=== PATIENT | male | born 1950 | race African-American/Black ===

== ENCOUNTER 2020-10-06 11:27 | Observation (INO) ==
[2020-10-06] MEDS ORDERED: SODIUM CHLORIDE 0.9% 1,000 ML IV STA (11:43)
[2020-10-06 12:22] LABS: Basophils % 0.3 % (0.0-0.8); Eosinophils # 0.1 10*3/uL (0.0-0.87); Eosinophils % 0.7 % (0.00-10.9); Hematocrit 33.8 VOL% (42.0-52.0); Hemoglobin 10.6 GM/DL (14.0-18.0); Immature Granulocytes % 0.3 %; Immature Granulocytes Absolute 0.03 #; Lymphocytes % 22.3 % (21.2-54.2); Mean Corpuscular HGB Conc 31.4 GM/DL (32-36); Mean Corpuscular Volume 98.3 FL (87-102); Monocytes % 9.6 % (1.7-12.7); Neutrophils % 66.8 % (38.7-73.9); Platelet Count 209 T/CUMM (130-400); Red Blood Count 3.44 MC/CUMM (3.8-5.5); Red Cell Distribution Width 14.3 % (9.3-17.3); White Blood Count 9.1 T/CUMM (4-12)
[2020-10-06 12:32] LABS: PT Patient Result 11.4 SECS (10.5-12.0)
[2020-10-06 12:43] LABS: Albumin 3.6 G/DL (3.4-5.0); Bilirubin,Total 0.6 MG/DL (0.20-1.00); Calcium 8.8 MG/DL (8.5-10.1); Osmolality,Calculated 289.7 MOS/KG (273-304); Potassium 3.5 MMOL/L (3.5-5.1); Total Protein 7.2 G/DL (6.4-8.2)
[2020-10-06 13:41] LABS: Bilirubin,Urine Negative (Negative); Blood, Urine Negative (Negative); Glucose,Urine (UA) Negative (Negative); Ketones,Urine 5 mg/dL (Negative); Mucus,Urine Occasional /LPF (Occasional); Nitrite,Urine Negative (Negative); Protein,Urine Negative; RBC,Urine 5 /HPF (0-4); Squamous Epithelial Cell,Urine Occasional /HPF (0-10); Urine Appearance CLEAR (Clear); Urine Color Yellow (Yellow); Urine Specific Gravity 1.018 (1.001-1.035)
[2020-10-06 14:17] LABS: ABG HCO3 24.6 MMOL/L (20-26); ABG Oxygen Saturation 95.6 % (95-100); ABG PCO2 39.7 MM HG (35-48); ABG PO2 85.5 MM HG (80-95); ABG TCO2 25.8 MMOL/L (23-27)
[2020-10-06] MEDS ORDERED: ONDANSETRON 4 MG/2 ML VIAL IV PRN (15:51)
[2020-10-06] MEDS ORDERED: hydrALAZINE 20 MG/1 ML VIAL IV PRN (15:51)
[2020-10-06] MEDS ORDERED: ACETAMINOPHEN 325 MG TABLET PO PRN (15:51)
[2020-10-06] MEDS ORDERED: DOCUSATE SODIUM 100 MG CAPSULE PO PRN (15:51)
[2020-10-06] MEDS ORDERED: DEXTROSE 50% 25 GM/50 ML VIAL IV PRN (15:51)
[2020-10-06] MEDS ORDERED: GLUCAGON 1 MG VIAL IM PRN (15:51)
[2020-10-06] MEDS ORDERED: ALBUTEROL 2.5 MG/3 ML NEB RESP TX PRN (15:51)
[2020-10-06] MEDS ORDERED: NITROGLYCERIN SL 0.4 MG TABLET SL PRN (20:04)
[2020-10-06] MEDS: levETIRAcetam 500 MG TABLET PO SCH (21:53)
[2020-10-06] MEDS: risperiDONE 1 MG TABLET PO SCH (21:53)
[2020-10-06] MEDS: ENOXAPARIN 40 MG/0.4 ML SYRINGE SUBCUT SCH (21:53)
[2020-10-06] MEDS: DIVALPROEX ER 500 MG TABLET PO SCH (21:54)
[2020-10-07 05:49] LABS: Basophils % 0.3 % (0.0-0.8); Eosinophils % 0.4 % (0.00-10.9); Hematocrit 29.1 VOL% (42.0-52.0); Hemoglobin 9.4 GM/DL (14.0-18.0); Immature Granulocytes % 0.6 %; Immature Granulocytes Absolute 0.05 #; Lymphocytes # 1.7 10*3/uL (1.4-4.0); Lymphocytes % 19.4 % (21.2-54.2); Mean Corpuscular HGB Conc 32.3 GM/DL (32-36); Mean Platelet Volume 10.8 FL (9.6-12.0); Monocytes % 10.7 % (1.7-12.7); Neutrophils % 68.6 % (38.7-73.9); Platelet Count 199 T/CUMM (130-400); Red Cell Distribution Width 14.2 % (9.3-17.3)
[2020-10-07 06:06] LABS: Calcium 8.7 MG/DL (8.5-10.1); Osmolality,Calculated 281.3 MOS/KG (273-304); Potassium 3.2 MMOL/L (3.5-5.1); Risk Ratio 7.53; Thyroid Stimulating Hormone 3.55 uIU/ml (0.358-3.74); VLDL Cholesterol 30.6 MG/DL
[2020-10-07] MEDS ORDERED: risperiDONE 0.5 MG TABLET PO SCH (09:00)
[2020-10-07] MEDS: SERTRALINE 100 MG TABLET PO SCH (09:26)
[2020-10-07] MEDS: levETIRAcetam 500 MG TABLET PO SCH ×2 (09:26→21:58)
[2020-10-07] MEDS: MEMANTINE 10 MG TABLET PO SCH (09:26)
[2020-10-07] MEDS: PANTOPRAZOLE 40 MG TABLET PO SCH (09:27)
[2020-10-07] MEDS: DONEPEZIL 10 MG TABLET PO SCH (09:27)
[2020-10-07] MEDS: DIVALPROEX ER 500 MG TABLET PO SCH (09:34)
[2020-10-07] MEDS: VALPROIC ACID 250 MG/5 ML UDCUP PO SCH ×2 (10:22→21:57)
[2020-10-07] MEDS: ENOXAPARIN 40 MG/0.4 ML SYRINGE SUBCUT SCH (21:57)
[2020-10-07] MEDS: risperiDONE 1 MG TABLET PO SCH (21:57)
[2020-10-07] MEDS: ATORVASTATIN 20 MG TABLET PO SCH (21:58)
[2020-10-08 05:40] LABS: Basophils % 0.4 % (0.0-0.8); Eosinophils # 0.1 10*3/uL (0.0-0.87); Eosinophils % 0.9 % (0.00-10.9); Hematocrit 28.3 VOL% (42.0-52.0); Hemoglobin 9.2 GM/DL (14.0-18.0); Immature Granulocytes % 0.4 %; Immature Granulocytes Absolute 0.03 #; Lymphocytes # 2.1 10*3/uL (1.4-4.0); Lymphocytes % 27.2 % (21.2-54.2); Mean Corpuscular HGB Conc 32.5 GM/DL (32-36); Mean Corpuscular Volume 97.3 FL (87-102); Mean Platelet Volume 10.4 FL (9.6-12.0); Monocytes % 9.6 % (1.7-12.7); Neutrophils % 61.5 % (38.7-73.9); Platelet Count 200 T/CUMM (130-400); Red Blood Count 2.91 MC/CUMM (3.8-5.5); Red Cell Distribution Width 13.9 % (9.3-17.3); White Blood Count 7.8 T/CUMM (4-12)
[2020-10-08 06:15] LABS: Calcium 8.7 MG/DL (8.5-10.1); Osmolality,Calculated 283.1 MOS/KG (273-304); Potassium 3.1 MMOL/L (3.5-5.1)
[2020-10-08] MEDS: CARBIDOPA/LEVODOPA 25-100 MG TABLET PO SCH ×3 (08:36→16:44)
[2020-10-08] MEDS: POTASSIUM BICARB EFFERVESCENT 20 MEQ TAB.EFF PO PRN ×3 (08:37→12:39)
[2020-10-08] MEDS: MEMANTINE 10 MG TABLET PO SCH (08:37)
[2020-10-08] MEDS: levETIRAcetam 500 MG TABLET PO SCH ×2 (08:37→21:36)
[2020-10-08] MEDS: DONEPEZIL 10 MG TABLET PO SCH (08:37)
[2020-10-08] MEDS: PANTOPRAZOLE 40 MG TABLET PO SCH (08:37)
[2020-10-08] MEDS: SERTRALINE 100 MG TABLET PO SCH (08:37)
[2020-10-08] MEDS: VALPROIC ACID 250 MG/5 ML UDCUP PO SCH ×2 (08:37→21:36)
[2020-10-08] MEDS: ATORVASTATIN 20 MG TABLET PO SCH (21:36)
[2020-10-08] MEDS: risperiDONE 1 MG TABLET PO SCH (21:36)
[2020-10-08] MEDS: ENOXAPARIN 40 MG/0.4 ML SYRINGE SUBCUT SCH (21:36)
[2020-10-09] MEDS: MEMANTINE 10 MG TABLET PO SCH (10:08)
[2020-10-09] MEDS: PANTOPRAZOLE 40 MG TABLET PO SCH (10:08)
[2020-10-09] MEDS: CARBIDOPA/LEVODOPA 25-100 MG TABLET PO SCH ×3 (10:08→17:33)
[2020-10-09] MEDS: SERTRALINE 100 MG TABLET PO SCH (10:09)
[2020-10-09] MEDS: VALPROIC ACID 250 MG/5 ML UDCUP PO SCH ×2 (10:09→20:47)
[2020-10-09] MEDS: DONEPEZIL 10 MG TABLET PO SCH (10:09)
[2020-10-09] MEDS: levETIRAcetam 500 MG TABLET PO SCH ×2 (10:09→20:47)
[2020-10-09] MEDS: AZITHROMYCIN 250 MG TABLET PO SCH (12:22)
[2020-10-09] MEDS: risperiDONE 1 MG TABLET PO SCH (20:46)
[2020-10-09] MEDS: ENOXAPARIN 40 MG/0.4 ML SYRINGE SUBCUT SCH (20:47)
[2020-10-09] MEDS: ATORVASTATIN 20 MG TABLET PO SCH (20:47)
[2020-10-10] MEDS: MEMANTINE 10 MG TABLET PO SCH (08:51)
[2020-10-10] MEDS: DONEPEZIL 10 MG TABLET PO SCH (08:51)
[2020-10-10] MEDS: SERTRALINE 100 MG TABLET PO SCH (08:53)
[2020-10-10] MEDS: CARBIDOPA/LEVODOPA 25-100 MG TABLET PO SCH ×3 (08:53→17:44)
[2020-10-10] MEDS: PANTOPRAZOLE 40 MG TABLET PO SCH (09:07)
[2020-10-10] MEDS: AZITHROMYCIN 250 MG TABLET PO SCH (09:07)
[2020-10-10] MEDS: levETIRAcetam 500 MG TABLET PO SCH ×2 (09:08→21:32)
[2020-10-10] MEDS: VALPROIC ACID 250 MG/5 ML UDCUP PO SCH ×2 (09:08→21:32)
[2020-10-10] MEDS: ENOXAPARIN 40 MG/0.4 ML SYRINGE SUBCUT SCH (21:32)
[2020-10-10] MEDS: ATORVASTATIN 20 MG TABLET PO SCH (21:32)
[2020-10-10] MEDS: risperiDONE 1 MG TABLET PO SCH (21:32)
[2020-10-11] MEDS: PANTOPRAZOLE 40 MG TABLET PO SCH (09:36)
[2020-10-11] MEDS: CARBIDOPA/LEVODOPA 25-100 MG TABLET PO SCH ×2 (09:36→13:00)
[2020-10-11] MEDS: MEMANTINE 10 MG TABLET PO SCH (09:37)
[2020-10-11] MEDS: SERTRALINE 100 MG TABLET PO SCH (09:37)
[2020-10-11] MEDS: levETIRAcetam 500 MG TABLET PO SCH (09:37)
[2020-10-11] MEDS: AZITHROMYCIN 250 MG TABLET PO SCH (09:37)
[2020-10-11] MEDS: VALPROIC ACID 250 MG/5 ML UDCUP PO SCH (09:37)
[2020-10-11] MEDS: DONEPEZIL 10 MG TABLET PO SCH (09:38)
[2020-10-11 12:23] VITALS: BP 141/83
== END 2020-10-11 13:21 ==
LOC: N.EDINP 11:27 → N.ED 11:27 → SUATTDRO 15:51 → N.3E 18:11
PROVIDERS: ADMIT Internal Medicine; ATTEND Hospitalist

== ENCOUNTER 2020-12-19 13:43 | Inpatient (IN) ==
[2020-12-19] MEDS ORDERED: ACETAMINOPHEN 650 MG SUPP RECTAL STA (14:07)
[2020-12-19 14:29] LABS: Basophils % 0.2 % (0.0-0.8); Hematocrit 37.4 VOL% (42.0-52.0); Hemoglobin 11.5 GM/DL (14.0-18.0); Immature Granulocytes % 0.3 %; Immature Granulocytes Absolute 0.04 #; Lymphocytes # 1.3 10*3/uL (1.4-4.0); Mean Corpuscular HGB Conc 30.7 GM/DL (32-36); Mean Corpuscular Volume 99.7 FL (87-102); Mean Platelet Volume 10.1 FL (9.6-12.0); Monocytes % 11.9 % (1.7-12.7); Neutrophils % 77.6 % (38.7-73.9); Platelet Count 301 T/CUMM (130-400); Red Blood Count 3.75 MC/CUMM (3.8-5.5); Red Cell Distribution Width 13.6 % (9.3-17.3); White Blood Count 13.3 T/CUMM (4-12)
[2020-12-19 14:40] LABS: Alanine Aminotransferase 11 U/L (16-61); Albumin 3.1 G/DL (3.4-5.0); Alkaline Phosphatase 90 U/L (45-117); Aspartate Amino Transferase 42 U/L (0-37); Blood Urea Nitrogen 37 MG/DL (7-18); Calcium 9.2 MG/DL (8.5-10.1); Carbon Dioxide 29 MMOL/L (21-32); Glucose 141 MG/DL (74-106); Osmolality,Calculated 306.1 MOS/KG (273-304); Potassium 3.9 MMOL/L (3.5-5.1); Sodium 149 MMOL/L (136-145); Total Protein 7.1 G/DL (6.4-8.2)
[2020-12-19 14:41] LABS: Estimated Glom Filtration Rate 0 ML/MIN
[2020-12-19] MEDS ORDERED: LACTATED RINGERS 1,000 ML IV ONE (14:44)
[2020-12-19 15:25] LABS: Bilirubin,Urine Negative (Negative); Blood, Urine Negative (Negative); Glucose,Urine (UA) Negative (Negative); Ketones,Urine 5 mg/dL (Negative); Mucus,Urine Few /LPF (Occasional); Nitrite,Urine Negative (Negative); Protein,Urine Negative; RBC,Urine 4 /HPF (0-4); Urine Appearance CLEAR (Clear); Urine Color Yellow (Yellow); Urine Urobilinogen < 2.0 EU/DL (0.2-1.0)
[2020-12-19] MEDS ORDERED: PIPERACILLIN/TAZOBACTAM 3,375 MG in SODIUM CHLORIDE 0.9% 100 ML IV STA (15:37)
[2020-12-19] MEDS ORDERED: ONDANSETRON 4 MG/2 ML VIAL IV PRN (16:22)
[2020-12-19] MEDS ORDERED: ACETAMINOPHEN 325 MG TABLET PO PRN (16:22)
[2020-12-19] MEDS ORDERED: PIPERACILLIN/TAZOBACTAM 3,375 MG VIAL IV ONE (16:38)
[2020-12-19] MEDS ORDERED: SODIUM CHLORIDE 0.9% 100 ML IV ONE (16:39)
[2020-12-19] MEDS ORDERED: hydrALAZINE 20 MG/1 ML VIAL IV PRN (17:11)
[2020-12-19] MEDS ORDERED: SODIUM CHLORIDE 0.9% 2,550 ML IV ONE (17:25)
[2020-12-19] MEDS ORDERED: VANCOMYCIN INJ 1,000 MG in SODIUM CHLORIDE 0.9% 250 ML IV SCH (17:30)
[2020-12-19] MEDS: ENOXAPARIN 40 MG/0.4 ML SYRINGE SUBCUT SCH (18:15)
[2020-12-19] MEDS: LACTATED RINGERS 1,000 ML IV SCH (22:55)
[2020-12-19] MEDS: VANCOMYCIN INJ 1,250 MG in SODIUM CHLORIDE 0.9% 250 ML IV SCH (22:56)
[2020-12-20] MEDS: PIPERACILLIN/TAZOBACTAM 3,375 MG in SODIUM CHLORIDE 0.9% 100 ML IV SCH ×4 (00:32→23:58)
[2020-12-20 05:25] LABS: Hemoglobin 10.4 GM/DL (14.0-18.0); Mean Corpuscular HGB Conc 30.6 GM/DL (32-36); Mean Corpuscular Volume 101.5 FL (87-102); Red Blood Count 3.35 MC/CUMM (3.8-5.5); Red Cell Distribution Width 13.5 % (9.3-17.3); White Blood Count 14.1 T/CUMM (4-12)
[2020-12-20 05:26] LABS: Basophils % 0.3 % (0.0-0.8); Immature Granulocytes % 0.4 %; Immature Granulocytes Absolute 0.06 #; Lymphocytes # 1.8 10*3/uL (1.4-4.0); Lymphocytes % 12.4 % (21.2-54.2); Monocytes % 11.7 % (1.7-12.7); Neutrophils % 75.2 % (38.7-73.9); Platelet Count 268 T/CUMM (130-400)
[2020-12-20 05:42] LABS: Calcium 8.7 MG/DL (8.5-10.1); Osmolality,Calculated 306.9 MOS/KG (273-304); Potassium 4.2 MMOL/L (3.5-5.1)
[2020-12-20] MEDS: LACTATED RINGERS 1,000 ML IV SCH ×2 (06:38→10:41)
[2020-12-20] MEDS: SODIUM CHLORIDE 0.45% 1,000 ML IV SCH (09:33)
[2020-12-20] MEDS ORDERED: ACETAMINOPHEN 325 MG SUPP RECTAL PRN (14:34)
[2020-12-20] MEDS: VANCOMYCIN INJ 1,250 MG in SODIUM CHLORIDE 0.9% 250 ML IV SCH (14:35)
[2020-12-20] MEDS: ENOXAPARIN 40 MG/0.4 ML SYRINGE SUBCUT SCH (17:02)
[2020-12-21] MEDS: SODIUM CHLORIDE 0.45% 1,000 ML IV SCH (01:23)
[2020-12-21 05:13] LABS: Basophils # 0.1 10*3/uL (0.0-0.2); Basophils % 0.5 % (0.0-0.8); Eosinophils % 0.2 % (0.00-10.9); Hematocrit 29.9 VOL% (42.0-52.0); Hemoglobin 9.1 GM/DL (14.0-18.0); Immature Granulocytes % 0.6 %; Immature Granulocytes Absolute 0.06 #; Lymphocytes # 2.1 10*3/uL (1.4-4.0); Lymphocytes % 22.6 % (21.2-54.2); Mean Corpuscular HGB Conc 30.4 GM/DL (32-36); Mean Corpuscular Volume 103.5 FL (87-102); Mean Platelet Volume 10.1 FL (9.6-12.0); Monocytes % 9.4 % (1.7-12.7); Neutrophils % 66.7 % (38.7-73.9); Platelet Count 228 T/CUMM (130-400); Red Blood Count 2.89 MC/CUMM (3.8-5.5); Red Cell Distribution Width 13.2 % (9.3-17.3); White Blood Count 9.3 T/CUMM (4-12)
[2020-12-21 05:50] LABS: % Iron Saturation 17.2 % (18-50); Calcium 8.4 MG/DL (8.5-10.1); Ferritin 324.3 ng/mL (26-388); Osmolality,Calculated 304.9 MOS/KG (273-304)
[2020-12-21 05:57] LABS: Folate 4.82 NG/ML (5.38-24.0)
[2020-12-21] MEDS: VANCOMYCIN INJ 1,250 MG in SODIUM CHLORIDE 0.9% 250 ML IV SCH (08:13)
[2020-12-21] MEDS: PIPERACILLIN/TAZOBACTAM 3,375 MG in SODIUM CHLORIDE 0.9% 100 ML IV SCH ×2 (10:43→17:41)
[2020-12-21] MEDS ORDERED: BISACODYL 10 MG SUPP RECTAL ONE (11:00)
[2020-12-21] MEDS ORDERED: DEXTROSE 50% 25 GM/50 ML SYRINGE IV ONE (11:05)
[2020-12-21] MEDS ORDERED: AMIODARONE 150 MG/3 ML VIAL ONE (11:05)
[2020-12-21] MEDS ORDERED: SODIUM BICARBONATE 50 MEQ/50 ML SYRINGE IV ONE (11:05)
[2020-12-21] MEDS ORDERED: EPINEPHrine 1 MG/10 ML SYRINGE ONE (11:05)
[2020-12-21] MEDS: ERGOCALCIFEROL 50,000 UNIT CAPSULE PO SCH (13:54)
[2020-12-21] MEDS: FERROUS SULFATE 325 MG TABLET PO SCH (13:54)
[2020-12-21] MEDS: POLYETHYLENE GLYCOL POWDER 17 GM PACK PO SCH (13:55)
[2020-12-21] MEDS: FOLIC ACID 1 MG TABLET PO SCH (13:55)
[2020-12-21] MEDS: ENOXAPARIN 40 MG/0.4 ML SYRINGE SUBCUT SCH (21:41)
[2020-12-21] MEDS: VALPROIC ACID 250 MG/5 ML UDCUP PO SCH (21:44)
[2020-12-21] MEDS: CARBIDOPA/LEVODOPA 25-100 MG TABLET PO SCH (21:44)
[2020-12-21] MEDS: MEMANTINE 10 MG TABLET PO SCH (21:44)
[2020-12-22] MEDS: VANCOMYCIN INJ 1,250 MG in SODIUM CHLORIDE 0.9% 250 ML IV SCH ×2 (01:58→15:16)
[2020-12-22 02:11] LABS: Basophils # 0.1 10*3/uL (0.0-0.2); Basophils % 0.5 % (0.0-0.8); Eosinophils # 0.1 10*3/uL (0.0-0.87); Eosinophils % 0.5 % (0.00-10.9); Immature Granulocytes % 0.4 %; Immature Granulocytes Absolute 0.05 #; Lymphocytes # 2.3 10*3/uL (1.4-4.0); Lymphocytes % 20.7 % (21.2-54.2); Mean Corpuscular HGB Conc 30.3 GM/DL (32-36); Mean Corpuscular Volume 100.9 FL (87-102); Mean Platelet Volume 9.9 FL (9.6-12.0); Monocytes % 9.6 % (1.7-12.7); Neutrophils % 68.3 % (38.7-73.9); Platelet Count 276 T/CUMM (130-400); Red Blood Count 3.27 MC/CUMM (3.8-5.5); Red Cell Distribution Width 12.9 % (9.3-17.3); White Blood Count 11.3 T/CUMM (4-12)
[2020-12-22 02:18] LABS: Calcium 8.5 MG/DL (8.5-10.1); Osmolality,Calculated 289.8 MOS/KG (273-304); Potassium 3.4 MMOL/L (3.5-5.1)
[2020-12-22] MEDS: PIPERACILLIN/TAZOBACTAM 3,375 MG in SODIUM CHLORIDE 0.9% 100 ML IV SCH ×3 (03:52→18:33)
[2020-12-22] MEDS: VALPROIC ACID 250 MG/5 ML UDCUP PO SCH ×2 (09:23→23:50)
[2020-12-22] MEDS: POLYETHYLENE GLYCOL POWDER 17 GM PACK PO SCH (09:24)
[2020-12-22] MEDS: CARBIDOPA/LEVODOPA 25-100 MG TABLET PO SCH ×4 (10:44→23:50)
[2020-12-22] MEDS: FOLIC ACID 1 MG TABLET PO SCH (10:45)
[2020-12-22] MEDS: FERROUS SULFATE 325 MG TABLET PO SCH (10:45)
[2020-12-22] MEDS: MEMANTINE 10 MG TABLET PO SCH ×2 (10:45→23:50)
[2020-12-22] MEDS: DONEPEZIL 10 MG TABLET PO SCH (10:46)
[2020-12-22] MEDS ORDERED: POTASSIUM CHLORIDE RIDER 10 MEQ/100 ML PREMIX IV PRN (11:27)
[2020-12-23] MEDS: VANCOMYCIN INJ 1,250 MG in SODIUM CHLORIDE 0.9% 250 ML IV SCH ×2 (03:13→15:03)
[2020-12-23] MEDS: PIPERACILLIN/TAZOBACTAM 3,375 MG in SODIUM CHLORIDE 0.9% 100 ML IV SCH ×3 (03:14→17:41)
[2020-12-23 05:23] LABS: Basophils # 0.1 10*3/uL (0.0-0.2); Basophils % 0.6 % (0.0-0.8); Eosinophils # 0.1 10*3/uL (0.0-0.87); Eosinophils % 1.4 % (0.00-10.9); Hematocrit 31.7 VOL% (42.0-52.0); Hemoglobin 9.5 GM/DL (14.0-18.0); Immature Granulocytes % 0.5 %; Immature Granulocytes Absolute 0.05 #; Lymphocytes # 2.6 10*3/uL (1.4-4.0); Lymphocytes % 25.7 % (21.2-54.2); Mean Corpuscular Volume 100.6 FL (87-102); Mean Platelet Volume 10.2 FL (9.6-12.0); Monocytes % 8.8 % (1.7-12.7); Platelet Count 320 T/CUMM (130-400); Red Blood Count 3.15 MC/CUMM (3.8-5.5); Red Cell Distribution Width 13.1 % (9.3-17.3); White Blood Count 10.2 T/CUMM (4-12)
[2020-12-23 05:33] LABS: Calcium 8.4 MG/DL (8.5-10.1); Osmolality,Calculated 289.7 MOS/KG (273-304); Potassium 3.2 MMOL/L (3.5-5.1)
[2020-12-23 05:43] LABS: INR 1.1; PT Patient Result 12.5 SECS (10.5-12.0)
[2020-12-23] MEDS: POTASSIUM CHLORIDE 20 MEQ TABLET PO PRN ×4 (07:01→17:40)
[2020-12-23] MEDS ORDERED: LACTATED RINGERS 1,000 ML IV SCH (08:00)
[2020-12-23] MEDS ORDERED: LIDOCAINE 2% 5 ML VIAL ONE (09:57)
[2020-12-23] MEDS ORDERED: propofoL 200 MG/20 ML VIAL IV ONE (09:57)
[2020-12-23] MEDS: MEMANTINE 10 MG TABLET PO SCH ×2 (13:09→20:46)
[2020-12-23] MEDS: FOLIC ACID 1 MG TABLET PO SCH (13:09)
[2020-12-23] MEDS: FERROUS SULFATE 325 MG TABLET PO SCH (13:09)
[2020-12-23] MEDS: DONEPEZIL 10 MG TABLET PO SCH (13:09)
[2020-12-23] MEDS: VALPROIC ACID 250 MG/5 ML UDCUP PO SCH ×2 (13:09→20:45)
[2020-12-23] MEDS: POLYETHYLENE GLYCOL POWDER 17 GM PACK PO SCH (13:09)
[2020-12-23] MEDS: CARBIDOPA/LEVODOPA 25-100 MG TABLET PO SCH ×4 (13:09→20:46)
[2020-12-24] MEDS: VANCOMYCIN INJ 1,250 MG in SODIUM CHLORIDE 0.9% 250 ML IV SCH ×2 (02:01→14:34)
[2020-12-24] MEDS: PIPERACILLIN/TAZOBACTAM 3,375 MG in SODIUM CHLORIDE 0.9% 100 ML IV SCH ×3 (03:12→23:13)
[2020-12-24 04:30] LABS: Basophils # 0.1 10*3/uL (0.0-0.2); Basophils % 0.6 % (0.0-0.8); Eosinophils # 0.3 10*3/uL (0.0-0.87); Eosinophils % 2.2 % (0.00-10.9); Hemoglobin 9.8 GM/DL (14.0-18.0); Immature Granulocytes % 0.4 %; Immature Granulocytes Absolute 0.05 #; Lymphocytes # 2.8 10*3/uL (1.4-4.0); Lymphocytes % 25.2 % (21.2-54.2); Mean Corpuscular HGB Conc 30.6 GM/DL (32-36); Mean Corpuscular Volume 99.7 FL (87-102); Mean Platelet Volume 10.1 FL (9.6-12.0); Monocytes % 8.2 % (1.7-12.7); Neutrophils % 63.4 % (38.7-73.9); Platelet Count 313 T/CUMM (130-400); Red Blood Count 3.21 MC/CUMM (3.8-5.5); Red Cell Distribution Width 13.2 % (9.3-17.3); White Blood Count 11.2 T/CUMM (4-12)
[2020-12-24 04:57] LABS: Alanine Aminotransferase < 6 U/L (16-61); Albumin 2.2 G/DL (3.4-5.0); Alkaline Phosphatase 73 U/L (45-117); Aspartate Amino Transferase 17 U/L (0-37); Blood Urea Nitrogen 13 MG/DL (7-18); Calcium 8.3 MG/DL (8.5-10.1); Carbon Dioxide 26 MMOL/L (21-32); Estimated Glom Filtration Rate 107 ML/MIN; Glucose 107 MG/DL (74-106); Osmolality,Calculated 285.8 MOS/KG (273-304); Potassium 3.3 MMOL/L (3.5-5.1); Sodium 144 MMOL/L (136-145); Total Protein 5.7 G/DL (6.4-8.2)
[2020-12-24] MEDS: MEMANTINE 10 MG TABLET PO SCH ×2 (09:43→22:50)
[2020-12-24] MEDS: VALPROIC ACID 250 MG/5 ML UDCUP PO SCH ×2 (09:43→22:00)
[2020-12-24] MEDS: FOLIC ACID 1 MG TABLET PO SCH (09:43)
[2020-12-24] MEDS: CARBIDOPA/LEVODOPA 25-100 MG TABLET PO SCH ×4 (09:43→22:02)
[2020-12-24] MEDS: POLYETHYLENE GLYCOL POWDER 17 GM PACK PO SCH (09:43)
[2020-12-24] MEDS: FERROUS SULFATE 325 MG TABLET PO SCH (09:43)
[2020-12-24] MEDS: DONEPEZIL 10 MG TABLET PO SCH (09:43)
[2020-12-24] MEDS ORDERED: LACTATED RINGERS 1,000 ML IV SCH (11:00)
[2020-12-24] MEDS ORDERED: ETOMIDATE 40 MG/20 ML VIAL IV ONE (11:37)
[2020-12-24] MEDS ORDERED: propofoL 200 MG/20 ML VIAL IV ONE (11:37)
[2020-12-24] MEDS ORDERED: LIDOCAINE 2% 5 ML VIAL ONE (11:37)
[2020-12-24] MEDS ORDERED: SEVOFLURANE 1 UNIT/15 MINUTE INH ONE (11:37)
[2020-12-24] MEDS ORDERED: SUGAMMADEX 200 MG/2 ML VIAL IV ONE (11:51)
[2020-12-24] MEDS ORDERED: HYDROmorphone 2 MG/1 ML VIAL IV PRN (12:42)
[2020-12-24] MEDS ORDERED: MEPERIDINE 25 MG/1 ML VIAL IV PRN (12:42)
[2020-12-24] MEDS ORDERED: ONDANSETRON 4 MG/2 ML VIAL IV PRN (12:42)
[2020-12-24] MEDS ORDERED: POTASSIUM CHLORIDE 20 MEQ PACK PO ONE (18:18)
[2020-12-24] MEDS ORDERED: VANCOMYCIN INJ 1,250 MG in SODIUM CHLORIDE 0.9% 250 ML IV SCH (21:00)
[2020-12-25 06:13] LABS: Basophils # 0.1 10*3/uL (0.0-0.2); Basophils % 0.4 % (0.0-0.8); Eosinophils # 0.1 10*3/uL (0.0-0.87); Eosinophils % 0.7 % (0.00-10.9); Hematocrit 32.3 VOL% (42.0-52.0); Hemoglobin 10.3 GM/DL (14.0-18.0); Immature Granulocytes % 0.5 %; Immature Granulocytes Absolute 0.07 #; Lymphocytes # 1.5 10*3/uL (1.4-4.0); Lymphocytes % 10.9 % (21.2-54.2); Mean Corpuscular HGB Conc 31.9 GM/DL (32-36); Mean Corpuscular Volume 98.8 FL (87-102); Mean Platelet Volume 9.6 FL (9.6-12.0); Monocytes % 9.8 % (1.7-12.7); Neutrophils % 77.7 % (38.7-73.9); Platelet Count 295 T/CUMM (130-400); Red Blood Count 3.27 MC/CUMM (3.8-5.5); Red Cell Distribution Width 13.4 % (9.3-17.3); White Blood Count 13.6 T/CUMM (4-12)
[2020-12-25] MEDS: PIPERACILLIN/TAZOBACTAM 3,375 MG in SODIUM CHLORIDE 0.9% 100 ML IV SCH ×3 (06:27→22:26)
[2020-12-25 06:30] LABS: Albumin 2.2 G/DL (3.4-5.0); Bilirubin,Total 0.5 MG/DL (0.20-1.00); Calcium 8.6 MG/DL (8.5-10.1); Osmolality,Calculated 289.6 MOS/KG (273-304); Potassium 3.6 MMOL/L (3.5-5.1); Total Protein 5.9 G/DL (6.4-8.2)
[2020-12-25] MEDS: VALPROIC ACID 250 MG/5 ML UDCUP PO SCH ×2 (09:20→20:51)
[2020-12-25] MEDS: MEMANTINE 10 MG TABLET PO SCH ×2 (09:20→20:51)
[2020-12-25] MEDS: FOLIC ACID 1 MG TABLET PO SCH (09:20)
[2020-12-25] MEDS: DONEPEZIL 10 MG TABLET PO SCH (09:20)
[2020-12-25] MEDS: CARBIDOPA/LEVODOPA 25-100 MG TABLET PO SCH ×4 (09:20→20:51)
[2020-12-25] MEDS: FERROUS SULFATE 325 MG TABLET PO SCH (09:20)
[2020-12-25] MEDS: POLYETHYLENE GLYCOL POWDER 17 GM PACK PO SCH (09:26)
[2020-12-26 06:09] LABS: Basophils % 0.3 % (0.0-0.8); Eosinophils # 0.2 10*3/uL (0.0-0.87); Eosinophils % 1.4 % (0.00-10.9); Hematocrit 29.4 VOL% (42.0-52.0); Hemoglobin 9.2 GM/DL (14.0-18.0); Immature Granulocytes % 0.7 %; Immature Granulocytes Absolute 0.08 #; Lymphocytes # 1.5 10*3/uL (1.4-4.0); Mean Corpuscular HGB Conc 31.3 GM/DL (32-36); Monocytes % 10.3 % (1.7-12.7); Neutrophils % 75.3 % (38.7-73.9); Platelet Count 311 T/CUMM (130-400); Red Blood Count 2.97 MC/CUMM (3.8-5.5); Red Cell Distribution Width 13.7 % (9.3-17.3); White Blood Count 12.3 T/CUMM (4-12)
[2020-12-26 06:31] LABS: Alanine Aminotransferase < 6 U/L (16-61); Albumin 2.2 G/DL (3.4-5.0); Alkaline Phosphatase 76 U/L (45-117); Aspartate Amino Transferase 15 U/L (0-37); Blood Urea Nitrogen 14 MG/DL (7-18); Calcium 8.8 MG/DL (8.5-10.1); Carbon Dioxide 26 MMOL/L (21-32); Estimated Glom Filtration Rate 76 ML/MIN; Glucose 81 MG/DL (74-106); Osmolality,Calculated 289.6 MOS/KG (273-304); Sodium 146 MMOL/L (136-145)
[2020-12-26] MEDS: PIPERACILLIN/TAZOBACTAM 3,375 MG in SODIUM CHLORIDE 0.9% 100 ML IV SCH ×3 (07:19→23:01)
[2020-12-26] MEDS: VALPROIC ACID 250 MG/5 ML UDCUP PO SCH ×2 (08:39→23:00)
[2020-12-26] MEDS: DONEPEZIL 10 MG TABLET PO SCH (08:39)
[2020-12-26] MEDS: FERROUS SULFATE 325 MG TABLET PO SCH (08:39)
[2020-12-26] MEDS: FOLIC ACID 1 MG TABLET PO SCH (08:39)
[2020-12-26] MEDS: POLYETHYLENE GLYCOL POWDER 17 GM PACK PO SCH (08:40)
[2020-12-26] MEDS: POTASSIUM CHLORIDE 20 MEQ TABLET PO PRN ×4 (08:40→17:47)
[2020-12-26] MEDS: MEMANTINE 10 MG TABLET PO SCH ×2 (08:40→22:58)
[2020-12-26] MEDS: CARBIDOPA/LEVODOPA 25-100 MG TABLET PO SCH ×4 (08:40→22:58)
[2020-12-27 05:28] LABS: Basophils % 0.3 % (0.0-0.8); Eosinophils # 0.1 10*3/uL (0.0-0.87); Eosinophils % 0.8 % (0.00-10.9); Hematocrit 31.5 VOL% (42.0-52.0); Hemoglobin 9.7 GM/DL (14.0-18.0); Immature Granulocytes % 0.7 %; Immature Granulocytes Absolute 0.09 #; Lymphocytes # 1.5 10*3/uL (1.4-4.0); Lymphocytes % 12.1 % (21.2-54.2); Mean Corpuscular HGB Conc 30.8 GM/DL (32-36); Mean Platelet Volume 9.8 FL (9.6-12.0); Monocytes % 12.5 % (1.7-12.7); Neutrophils % 73.6 % (38.7-73.9); Platelet Count 349 T/CUMM (130-400); Red Blood Count 3.15 MC/CUMM (3.8-5.5); Red Cell Distribution Width 13.9 % (9.3-17.3); White Blood Count 12.5 T/CUMM (4-12)
[2020-12-27 05:45] LABS: Alanine Aminotransferase < 6 U/L (16-61); Albumin 2.2 G/DL (3.4-5.0); Alkaline Phosphatase 90 U/L (45-117); Aspartate Amino Transferase 15 U/L (0-37); Blood Urea Nitrogen 13 MG/DL (7-18); Calcium 8.5 MG/DL (8.5-10.1); Carbon Dioxide 26 MMOL/L (21-32); Estimated Glom Filtration Rate 76 ML/MIN; Glucose 104 MG/DL (74-106); Osmolality,Calculated 289.6 MOS/KG (273-304); Potassium 3.2 MMOL/L (3.5-5.1); Sodium 146 MMOL/L (136-145); Total Protein 6.2 G/DL (6.4-8.2)
[2020-12-27] MEDS: PIPERACILLIN/TAZOBACTAM 3,375 MG in SODIUM CHLORIDE 0.9% 100 ML IV SCH (06:26)
[2020-12-27] MEDS: POLYETHYLENE GLYCOL POWDER 17 GM PACK PO SCH (09:39)
[2020-12-27] MEDS: MEMANTINE 10 MG TABLET PO SCH ×2 (09:39→23:21)
[2020-12-27] MEDS: VALPROIC ACID 250 MG/5 ML UDCUP PO SCH ×2 (09:39→23:20)
[2020-12-27] MEDS: FOLIC ACID 1 MG TABLET PO SCH (09:39)
[2020-12-27] MEDS: DONEPEZIL 10 MG TABLET PO SCH (09:39)
[2020-12-27] MEDS: FERROUS SULFATE 325 MG TABLET PO SCH (09:39)
[2020-12-27] MEDS: CARBIDOPA/LEVODOPA 25-100 MG TABLET PO SCH ×4 (09:39→23:20)
[2020-12-28 07:18] LABS: Calcium 8.4 MG/DL (8.5-10.1); Osmolality,Calculated 283.1 MOS/KG (273-304); Potassium 3.4 MMOL/L (3.5-5.1)
[2020-12-28] MEDS: VALPROIC ACID 250 MG/5 ML UDCUP PO SCH (09:53)
[2020-12-28] MEDS: POLYETHYLENE GLYCOL POWDER 17 GM PACK PO SCH (09:54)
[2020-12-28] MEDS: FERROUS SULFATE 325 MG TABLET PO SCH (09:54)
[2020-12-28] MEDS: DONEPEZIL 10 MG TABLET PO SCH (09:54)
[2020-12-28] MEDS: FOLIC ACID 1 MG TABLET PO SCH (09:54)
[2020-12-28] MEDS: POTASSIUM CHLORIDE 20 MEQ TABLET PO PRN (09:55)
[2020-12-28] MEDS: ERGOCALCIFEROL 50,000 UNIT CAPSULE PO SCH (09:55)
[2020-12-28] MEDS: CARBIDOPA/LEVODOPA 25-100 MG TABLET PO SCH ×2 (09:55→13:25)
[2020-12-28] MEDS: MEMANTINE 10 MG TABLET PO SCH (10:22)
[2020-12-28] MEDS ORDERED: POTASSIUM CHLORIDE 20 MEQ TABLET PO ONE (12:11)
[2020-12-28 12:46] VITALS: BP 112/71
== END 2020-12-28 13:39 | DRG 640 ==
LOC: EDBD → EDSEX → EDUNIT# → N.ED 13:43 → N.EDINP 16:22 → SUATTDRO 16:22 → N.5E 18:02
PROVIDERS: ADMIT Internal Medicine Geriatric Medicine; ATTEND Internal Medicine

== ENCOUNTER 2021-03-10 15:06 | Observation (INO) ==
[2021-03-10 15:55] LABS: Basophils # 0.1 10*3/uL (0.0-0.2); Basophils % 0.3 % (0.0-0.8); Eosinophils # 0.1 10*3/uL (0.0-0.87); Eosinophils % 0.7 % (0.00-10.9); Hematocrit 27.9 VOL% (42.0-52.0); Hemoglobin 8.7 GM/DL (14.0-18.0); Immature Granulocytes % 0.4 %; Immature Granulocytes Absolute 0.06 #; Lymphocytes # 2.2 10*3/uL (1.4-4.0); Lymphocytes % 14.6 % (21.2-54.2); Mean Corpuscular HGB Conc 31.2 GM/DL (32-36); Mean Corpuscular Volume 95.2 FL (87-102); Mean Platelet Volume 9.3 FL (9.6-12.0); Monocytes % 7.8 % (1.7-12.7); Neutrophils % 76.2 % (38.7-73.9); Platelet Count 468 T/CUMM (130-400); Red Blood Count 2.93 MC/CUMM (3.8-5.5); Red Cell Distribution Width 14.9 % (9.3-17.3); White Blood Count 14.8 T/CUMM (4-12)
[2021-03-10 16:26] LABS: Calcium 9.5 MG/DL (8.5-10.1); Potassium 3.8 MMOL/L (3.5-5.1)
[2021-03-10 17:38] LABS: Bilirubin,Urine Negative (Negative); Blood, Urine Negative (Negative); Glucose,Urine (UA) Negative (Negative); Ketones,Urine 5 mg/dL (Negative); Mucus,Urine Moderate /LPF (Occasional); Nitrite,Urine Negative (Negative); Protein,Urine Negative; RBC,Urine 3 /HPF (0-4); Urine Appearance CLEAR (Clear); Urine Color Yellow (Yellow); Urine Specific Gravity 1.021 (1.001-1.035)
[2021-03-10] MEDS ORDERED: ONDANSETRON 4 MG/2 ML VIAL IV PRN (18:02)
[2021-03-10] MEDS ORDERED: MORPHINE 2 MG/1 ML SYRINGE IV PRN (18:02)
[2021-03-10] MEDS ORDERED: ACETAMINOPHEN 325 MG TABLET PO PRN (18:02)
[2021-03-10] MEDS ORDERED: hydrALAZINE 20 MG/1 ML VIAL IV PRN (18:02)
[2021-03-10] MEDS ORDERED: GLUCAGON 1 MG VIAL IM PRN (18:02)
[2021-03-10] MEDS: DEXTROSE 5% NACL 0.45% 1,000 ML IV SCH (18:17)
[2021-03-10] MEDS ORDERED: DEXTROSE 10% 250 ML BAG IV PRN (18:18)
[2021-03-10] MEDS: MEMANTINE 10 MG TABLET PER TUBE SCH (21:34)
[2021-03-10] MEDS: ATORVASTATIN 20 MG TABLET PEG SCH (21:34)
[2021-03-10] MEDS: CARBIDOPA/LEVODOPA 25-100 MG TABLET PEG SCH (21:34)
[2021-03-10] MEDS: VALPROIC ACID 250 MG/5 ML UDCUP PEG SCH (21:34)
[2021-03-10] MEDS: risperiDONE 1 MG TABLET PEG SCH (21:34)
[2021-03-11 05:27] LABS: Basophils # 0.1 10*3/uL (0.0-0.2); Basophils % 0.4 % (0.0-0.8); Eosinophils # 0.1 10*3/uL (0.0-0.87); Eosinophils % 0.5 % (0.00-10.9); Hematocrit 27.2 VOL% (42.0-52.0); Hemoglobin 8.3 GM/DL (14.0-18.0); Immature Granulocytes % 0.5 %; Immature Granulocytes Absolute 0.06 #; Lymphocytes # 2.2 10*3/uL (1.4-4.0); Lymphocytes % 17.5 % (21.2-54.2); Mean Corpuscular HGB Conc 30.5 GM/DL (32-36); Mean Corpuscular Volume 95.8 FL (87-102); Mean Platelet Volume 9.3 FL (9.6-12.0); Monocytes % 8.2 % (1.7-12.7); Neutrophils % 72.9 % (38.7-73.9); Platelet Count 458 T/CUMM (130-400); Red Blood Count 2.84 MC/CUMM (3.8-5.5); Red Cell Distribution Width 14.8 % (9.3-17.3); White Blood Count 12.8 T/CUMM (4-12)
[2021-03-11 05:41] LABS: Bilirubin,Total 1.7 MG/DL (0.20-1.00); Calcium 8.9 MG/DL (8.5-10.1); Osmolality,Calculated 281.5 MOS/KG (273-304); Potassium 3.6 MMOL/L (3.5-5.1); Risk Ratio 4.11; Total Protein 7.1 G/DL (6.4-8.2); VLDL Cholesterol 23.6 MG/DL
[2021-03-11] MEDS: DEXTROSE 5% NACL 0.45% 1,000 ML IV SCH ×2 (07:00→17:28)
[2021-03-11] MEDS ORDERED: PANTOPRAZOLE 40 MG VIAL IV SCH (09:00)
[2021-03-11] MEDS: DONEPEZIL 10 MG TABLET PEG SCH (11:23)
[2021-03-11] MEDS: VALPROIC ACID 250 MG/5 ML UDCUP PEG SCH ×2 (11:23→22:08)
[2021-03-11] MEDS: MEMANTINE 10 MG TABLET PER TUBE SCH ×2 (11:23→22:07)
[2021-03-11] MEDS: CARBIDOPA/LEVODOPA 25-100 MG TABLET PEG SCH ×4 (11:24→22:08)
[2021-03-11] MEDS: SERTRALINE 100 MG TABLET PEG SCH (11:24)
[2021-03-11] MEDS: risperiDONE 1 MG TABLET PEG SCH (22:07)
[2021-03-11] MEDS: ATORVASTATIN 20 MG TABLET PEG SCH (22:08)
[2021-03-11] MEDS: PANTOPRAZOLE 40 MG VIAL IV SCH (22:08)
[2021-03-12 07:00] LABS: Basophils # 0.1 10*3/uL (0.0-0.2); Basophils % 0.4 % (0.0-0.8); Eosinophils # 0.2 10*3/uL (0.0-0.87); Eosinophils % 1.6 % (0.00-10.9); Hematocrit 27.7 VOL% (42.0-52.0); Hemoglobin 8.8 GM/DL (14.0-18.0); Immature Granulocytes % 0.3 %; Immature Granulocytes Absolute 0.04 #; Lymphocytes # 2.5 10*3/uL (1.4-4.0); Lymphocytes % 20.2 % (21.2-54.2); Mean Corpuscular HGB Conc 31.8 GM/DL (32-36); Mean Corpuscular Volume 93.9 FL (87-102); Mean Platelet Volume 8.9 FL (9.6-12.0); Monocytes % 7.6 % (1.7-12.7); Neutrophils % 69.9 % (38.7-73.9); Platelet Count 464 T/CUMM (130-400); Red Blood Count 2.95 MC/CUMM (3.8-5.5); Red Cell Distribution Width 14.8 % (9.3-17.3); White Blood Count 12.2 T/CUMM (4-12)
[2021-03-12 07:06] LABS: Calcium 8.7 MG/DL (8.5-10.1); Osmolality,Calculated 270.4 MOS/KG (273-304); Potassium 3.5 MMOL/L (3.5-5.1)
[2021-03-12] MEDS: PANTOPRAZOLE 40 MG VIAL IV SCH (09:56)
[2021-03-12] MEDS: SERTRALINE 100 MG TABLET PEG SCH (10:22)
[2021-03-12] MEDS: CARBIDOPA/LEVODOPA 25-100 MG TABLET PEG SCH (10:22)
[2021-03-12] MEDS: DONEPEZIL 10 MG TABLET PEG SCH (10:22)
[2021-03-12] MEDS: MEMANTINE 10 MG TABLET PER TUBE SCH (10:22)
[2021-03-12] MEDS: VALPROIC ACID 250 MG/5 ML UDCUP PEG SCH (10:22)
[2021-03-12] MEDS: DEXTROSE 5% NACL 0.45% 1,000 ML IV SCH ×2 (10:23→11:43)
[2021-03-12 11:19] VITALS: BP 139/88
== END 2021-03-12 12:58 | disposition swing bed (61) ==
LOC: EDBD → EDUNIT# → N.EDINP 15:06 → N.ED 15:06 → N.TELES 22:36
PROVIDERS: ADMIT Internal Medicine; ATTEND Internal Medicine

== ENCOUNTER 2021-04-08 18:52 | Inpatient (IN) ==
[2021-04-08] MEDS ORDERED: SODIUM CHLORIDE 0.9% 1,000 ML IV STA ×2 (19:24→20:10)
[2021-04-08 19:30] LABS: Basophils # 0.1 10*3/uL (0.0-0.2); Basophils % 0.5 % (0.0-0.8); Eosinophils # 0.1 10*3/uL (0.0-0.87); Eosinophils % 0.8 % (0.00-10.9); Hematocrit 32.6 VOL% (42.0-52.0); Hemoglobin 10.6 GM/DL (14.0-18.0); Immature Granulocytes % 0.5 %; Immature Granulocytes Absolute 0.06 #; Lymphocytes # 3.8 10*3/uL (1.4-4.0); Lymphocytes % 29.1 % (21.2-54.2); Mean Corpuscular HGB Conc 32.5 GM/DL (32-36); Mean Corpuscular Volume 90.8 FL (87-102); Mean Platelet Volume 9.9 FL (9.6-12.0); Monocytes % 8.1 % (1.7-12.7); Platelet Count 445 T/CUMM (130-400); Red Blood Count 3.59 MC/CUMM (3.8-5.5); Red Cell Distribution Width 16.7 % (9.3-17.3)
[2021-04-08 19:46] LABS: PT Patient Result 11.7 SECS (10.5-12.0)
[2021-04-08 19:53] LABS: Amorphous Crystals,Urine Occasional /HPF (Few); Bacteria,Urine Occasional /HPF (Few); Bilirubin,Urine Negative (Negative); Blood, Urine Negative (Negative); Calcium Oxalate Crystals,Urine Occasional /HPF (Few); Glucose,Urine (UA) Negative (Negative); Ketones,Urine 5 mg/dL (Negative); Mucus,Urine Occasional /LPF (Occasional); Nitrite,Urine Negative (Negative); Protein,Urine 30 MG/DL; Squamous Epithelial Cell,Urine Occasional /HPF (0-10); Urine Appearance Slightly Hazy (Clear); Urine Color Yellow (Yellow); Urine Specific Gravity 1.023 (1.001-1.035)
[2021-04-08 19:54] LABS: Albumin 2.9 G/DL (3.4-5.0); Bilirubin,Total 0.4 MG/DL (0.20-1.00); Calcium 9.4 MG/DL (8.5-10.1); Osmolality,Calculated 283.4 MOS/KG (273-304); Potassium 3.8 MMOL/L (3.5-5.1); Total Protein 7.3 G/DL (6.4-8.2)
[2021-04-08] MEDS ORDERED: ACETAMINOPHEN 325 MG/10.15 ML UDCUP PO STA (20:29)
[2021-04-08] MEDS ORDERED: PIPERACILLIN/TAZOBACTAM 3,375 MG in SODIUM CHLORIDE 0.9% 100 ML IV STA (20:31)
[2021-04-08 21:29] LABS: ABG HCO3 16.5 MMOL/L (20-26); ABG PO2 109.4 MM HG (80-95); ABG TCO2 16.9 MMOL/L (23-27)
[2021-04-08 21:37] LABS: ABG PCO2 14.3 MM HG (35-48)
[2021-04-08] MEDS ORDERED: ACETAMINOPHEN 325 MG TABLET PO PRN (23:00)
[2021-04-08] MEDS ORDERED: hydrALAZINE 20 MG/1 ML VIAL IV PRN (23:00)
[2021-04-08] MEDS ORDERED: GLUCAGON 1 MG VIAL IM PRN (23:00)
[2021-04-08] MEDS ORDERED: ONDANSETRON 4 MG/2 ML VIAL IV PRN (23:00)
[2021-04-08] MEDS ORDERED: ZALEPLON 5 MG CAPSULE PO PRN (23:00)
[2021-04-08] MEDS ORDERED: PROMETHAZINE 25 MG/1 ML VIAL IM PRN (23:00)
[2021-04-08] MEDS ORDERED: NICOTINE 21 MG/24 HR PATCH TRANSDERM PRN (23:00)
[2021-04-08] MEDS ORDERED: DEXTROSE 10% 250 ML BAG IV PRN (23:00)
[2021-04-08] MEDS ORDERED: ENOXAPARIN 80 MG/0.8 ML SYRINGE SUBCUT STA (23:03)
[2021-04-09] MEDS: cefTRIAXone 2,000 MG in SODIUM CHLORIDE 0.9% 100 ML IV SCH
[2021-04-09] MEDS: ALBUTEROL/IPRATROPIUM 3 ML NEB RESP TX SCH ×4 (01:28→19:32)
[2021-04-09] MEDS ORDERED: ALPRAZolam 0.5 MG TABLET PO ONE (03:18)
[2021-04-09] MEDS ORDERED: LORazepam 2 MG/1 ML VIAL IV ONE (03:20)
[2021-04-09 07:08] LABS: Basophils % 0.3 % (0.0-0.8); Eosinophils # 0.1 10*3/uL (0.0-0.87); Eosinophils % 0.8 % (0.00-10.9); Hematocrit 31.6 VOL% (42.0-52.0); Hemoglobin 9.7 GM/DL (14.0-18.0); Immature Granulocytes % 0.5 %; Immature Granulocytes Absolute 0.07 #; Lymphocytes # 3.4 10*3/uL (1.4-4.0); Lymphocytes % 22.1 % (21.2-54.2); Mean Corpuscular HGB Conc 30.7 GM/DL (32-36); Mean Corpuscular Volume 93.2 FL (87-102); Monocytes % 7.7 % (1.7-12.7); Neutrophils % 68.6 % (38.7-73.9); Platelet Count 427 T/CUMM (130-400); Red Blood Count 3.39 MC/CUMM (3.8-5.5); Red Cell Distribution Width 17.1 % (9.3-17.3); White Blood Count 15.3 T/CUMM (4-12)
[2021-04-09 07:41] LABS: Calcium 8.6 MG/DL (8.5-10.1)
[2021-04-09 07:42] LABS: Osmolality,Calculated 289.1 MOS/KG (273-304); Potassium 3.3 MMOL/L (3.5-5.1)
[2021-04-09 07:44] LABS: ABG Base Excess -5.6 MMOL/L (-2.5-2.5); ABG HCO3 19.8 MMOL/L (20-26); ABG Oxygen Saturation 98.4 % (95-100); ABG PCO2 35.6 MM HG (35-48); ABG PH 7.346 (7.35-7.45); ABG TCO2 17.9 MMOL/L (23-27)
[2021-04-09] MEDS: SERTRALINE 100 MG TABLET PEG SCH (09:06)
[2021-04-09] MEDS ORDERED: POTASSIUM PHOS/SOD PHOS POWDER 250 MG PACK PO ONE (13:44)
[2021-04-09] MEDS: DEXTROSE 5% NACL 0.9% 1,000 ML IV SCH ×2 (17:23)
[2021-04-09] MEDS: ENOXAPARIN 40 MG/0.4 ML SYRINGE SUBCUT SCH (20:59)
[2021-04-09] MEDS: risperiDONE 1 MG TABLET PEG SCH (20:59)
[2021-04-10] MEDS: ALBUTEROL/IPRATROPIUM 3 ML NEB RESP TX SCH ×4 (00:04→18:41)
[2021-04-10] MEDS: cefTRIAXone 2,000 MG in SODIUM CHLORIDE 0.9% 100 ML IV SCH (00:23)
[2021-04-10] MEDS: DEXTROSE 5% NACL 0.9% 1,000 ML IV SCH (05:31)
[2021-04-10 07:58] LABS: Calcium 8.8 MG/DL (8.5-10.1); Potassium 3.8 MMOL/L (3.5-5.1)
[2021-04-10] MEDS ORDERED: LORATADINE 10 MG TABLET PEG PRN (08:44)
[2021-04-10] MEDS: OMEPRAZOLE ODT 20 MG TABLET PEG SCH ×2 (09:59→20:36)
[2021-04-10] MEDS: SERTRALINE 100 MG TABLET PEG SCH (09:59)
[2021-04-10] MEDS: FERROUS SULFATE 300 MG/5 ML UDCUP PEG SCH ×2 (10:04→20:36)
[2021-04-10] MEDS: DONEPEZIL 10 MG TABLET PEG SCH (10:05)
[2021-04-10] MEDS: FOLIC ACID 1 MG TABLET PEG SCH (10:05)
[2021-04-10] MEDS: lisinopriL 10 MG TABLET PEG SCH (10:05)
[2021-04-10] MEDS: CARBIDOPA/LEVODOPA 25-100 MG TABLET PEG SCH ×4 (10:05→20:37)
[2021-04-10] MEDS: VALPROIC ACID 250 MG/5 ML UDCUP PEG SCH ×2 (10:05→20:36)
[2021-04-10] MEDS ORDERED: LORazepam 1 MG TABLET PO ONE (10:30)
[2021-04-10] MEDS: levETIRAcetam LIQUID 100 MG/ML 30 ML/BOTTLE PEG SCH ×2 (11:27→20:37)
[2021-04-10] MEDS ORDERED: LORazepam 2 MG/1 ML VIAL IV ONE (14:22)
[2021-04-10] MEDS: risperiDONE 1 MG TABLET PEG SCH (20:36)
[2021-04-10] MEDS: ATORVASTATIN 20 MG TABLET PEG SCH (20:36)
[2021-04-10] MEDS: ENOXAPARIN 40 MG/0.4 ML SYRINGE SUBCUT SCH (20:36)
[2021-04-11] MEDS: ALBUTEROL/IPRATROPIUM 3 ML NEB RESP TX SCH ×4 (00:08→18:48)
[2021-04-11] MEDS: cefTRIAXone 2,000 MG in SODIUM CHLORIDE 0.9% 100 ML IV SCH ×2 (00:14→23:43)
[2021-04-11 07:43] LABS: Basophils # 0.1 10*3/uL (0.0-0.2); Basophils % 0.5 % (0.0-0.8); Calcium 8.8 MG/DL (8.5-10.1); Eosinophils # 0.4 10*3/uL (0.0-0.87); Eosinophils % 3.5 % (0.00-10.9); Hematocrit 27.1 VOL% (42.0-52.0); Hemoglobin 8.2 GM/DL (14.0-18.0); Immature Granulocytes % 0.5 %; Immature Granulocytes Absolute 0.06 #; Lymphocytes # 2.5 10*3/uL (1.4-4.0); Lymphocytes % 21.8 % (21.2-54.2); Mean Corpuscular HGB Conc 30.3 GM/DL (32-36); Mean Corpuscular Volume 97.5 FL (87-102); Mean Platelet Volume 10.3 FL (9.6-12.0); Monocytes % 6.5 % (1.7-12.7); Neutrophils % 67.2 % (38.7-73.9); Osmolality,Calculated 287.1 MOS/KG (273-304); Potassium 4.1 MMOL/L (3.5-5.1); Red Blood Count 2.78 MC/CUMM (3.8-5.5); Red Cell Distribution Width 16.9 % (9.3-17.3); White Blood Count 11.5 T/CUMM (4-12)
[2021-04-11 07:46] LABS: Platelet Count 312 T/CUMM (130-400)
[2021-04-11] MEDS: lisinopriL 10 MG TABLET PEG SCH (09:38)
[2021-04-11] MEDS: SERTRALINE 100 MG TABLET PEG SCH (09:38)
[2021-04-11] MEDS: DONEPEZIL 10 MG TABLET PEG SCH (09:38)
[2021-04-11] MEDS: VALPROIC ACID 250 MG/5 ML UDCUP PEG SCH ×2 (09:39→20:40)
[2021-04-11] MEDS: CARBIDOPA/LEVODOPA 25-100 MG TABLET PEG SCH ×4 (09:39→20:39)
[2021-04-11] MEDS: FOLIC ACID 1 MG TABLET PEG SCH (09:39)
[2021-04-11] MEDS: OMEPRAZOLE ODT 20 MG TABLET PEG SCH ×2 (09:39→20:39)
[2021-04-11] MEDS: levETIRAcetam LIQUID 100 MG/ML 30 ML/BOTTLE PEG SCH ×2 (09:40→20:40)
[2021-04-11] MEDS: FERROUS SULFATE 300 MG/5 ML UDCUP PEG SCH ×2 (09:46→20:39)
[2021-04-11] MEDS ORDERED: LORazepam 2 MG/1 ML VIAL IV ONE ×2 (11:29→15:26)
[2021-04-11] MEDS: ATORVASTATIN 20 MG TABLET PEG SCH (20:39)
[2021-04-11] MEDS: risperiDONE 1 MG TABLET PEG SCH (20:39)
[2021-04-11] MEDS: ENOXAPARIN 40 MG/0.4 ML SYRINGE SUBCUT SCH (20:40)
[2021-04-12] MEDS: ALBUTEROL/IPRATROPIUM 3 ML NEB RESP TX SCH ×4 (01:15→19:37)
[2021-04-12] MEDS: LORazepam 2 MG/1 ML VIAL IV PRN ×2 (01:17→06:22)
[2021-04-12 05:24] LABS: Osmolality,Calculated 284.4 MOS/KG (273-304); Potassium 3.7 MMOL/L (3.5-5.1)
[2021-04-12] MEDS: OMEPRAZOLE ODT 20 MG TABLET PEG SCH ×2 (09:55→21:53)
[2021-04-12] MEDS: FOLIC ACID 1 MG TABLET PEG SCH (09:55)
[2021-04-12] MEDS: lisinopriL 10 MG TABLET PEG SCH (09:56)
[2021-04-12] MEDS: VALPROIC ACID 250 MG/5 ML UDCUP PEG SCH ×2 (09:56→21:52)
[2021-04-12] MEDS: CARBIDOPA/LEVODOPA 25-100 MG TABLET PEG SCH ×3 (09:56→17:00)
[2021-04-12] MEDS: levETIRAcetam LIQUID 100 MG/ML 30 ML/BOTTLE PEG SCH ×2 (09:56→23:16)
[2021-04-12] MEDS: FERROUS SULFATE 300 MG/5 ML UDCUP PEG SCH ×2 (09:56→21:52)
[2021-04-12] MEDS: CARBIDOPA/LEVODOPA 25-100 MG TABLET PO SCH (21:52)
[2021-04-12] MEDS: ENOXAPARIN 40 MG/0.4 ML SYRINGE SUBCUT SCH (21:53)
[2021-04-12] MEDS: ATORVASTATIN 20 MG TABLET PEG SCH (21:53)
[2021-04-12] MEDS: risperiDONE 1 MG TABLET PEG SCH (21:53)
[2021-04-12] MEDS: cefTRIAXone 2,000 MG in SODIUM CHLORIDE 0.9% 100 ML IV SCH (23:16)
[2021-04-13] MEDS: ALBUTEROL/IPRATROPIUM 3 ML NEB RESP TX SCH ×4 (00:01→19:18)
[2021-04-13] MEDS: FOLIC ACID 1 MG TABLET PEG SCH (09:15)
[2021-04-13] MEDS: CARBIDOPA/LEVODOPA 25-100 MG TABLET PO SCH ×4 (09:15→21:07)
[2021-04-13] MEDS: lisinopriL 10 MG TABLET PEG SCH (09:15)
[2021-04-13] MEDS: VALPROIC ACID 250 MG/5 ML UDCUP PEG SCH ×2 (09:16→21:07)
[2021-04-13] MEDS: FERROUS SULFATE 300 MG/5 ML UDCUP PEG SCH ×2 (09:16→21:07)
[2021-04-13] MEDS: OMEPRAZOLE ODT 20 MG TABLET PEG SCH ×2 (09:16→21:07)
[2021-04-13] MEDS: levETIRAcetam LIQUID 100 MG/ML 30 ML/BOTTLE PEG SCH ×2 (09:17→21:08)
[2021-04-13] MEDS: ATORVASTATIN 20 MG TABLET PEG SCH (21:07)
[2021-04-13] MEDS: ENOXAPARIN 40 MG/0.4 ML SYRINGE SUBCUT SCH (21:07)
[2021-04-13] MEDS: risperiDONE 1 MG TABLET PEG SCH (21:07)
[2021-04-13] MEDS: cefTRIAXone 2,000 MG in SODIUM CHLORIDE 0.9% 100 ML IV SCH (23:23)
[2021-04-14] MEDS: ALBUTEROL/IPRATROPIUM 3 ML NEB RESP TX SCH ×2 (00:38→07:40)
[2021-04-14] MEDS: lisinopriL 10 MG TABLET PEG SCH (09:40)
[2021-04-14] MEDS: FERROUS SULFATE 300 MG/5 ML UDCUP PEG SCH (09:41)
[2021-04-14] MEDS: FOLIC ACID 1 MG TABLET PEG SCH (09:41)
[2021-04-14] MEDS: OMEPRAZOLE ODT 20 MG TABLET PEG SCH (09:41)
[2021-04-14] MEDS: CARBIDOPA/LEVODOPA 25-100 MG TABLET PO SCH ×2 (09:41→13:17)
[2021-04-14] MEDS: VALPROIC ACID 250 MG/5 ML UDCUP PEG SCH (09:41)
[2021-04-14] MEDS: levETIRAcetam LIQUID 100 MG/ML 30 ML/BOTTLE PEG SCH (09:48)
[2021-04-14] MEDS: LORazepam 2 MG/1 ML VIAL IV PRN (10:40)
[2021-04-14 11:54] VITALS: BP 114/75
== END 2021-04-14 13:35 | disposition hospice, inpatient (51) | DRG 640 ==
LOC: EDUNIT# → EDBD → N.ED 18:52 → N.EDINP 23:00 → SUATTDRO 23:00 → N.EDINP 04-09 02:25 → N.TELES 04-09 02:50
PROVIDERS: ADMIT Internal Medicine; ATTEND Internal Medicine